=== PATIENT | female | born 1990 | race Two or more races ===

== ENCOUNTER 2024-03-27 06:43 | Inpatient (IN) | payer MEDICAID, OTHER ==
[~2024-03-27] VITALS: Ht 170.2 cm; Wt 92.0 kg
[2024-03-27] MEDS: MORPHINE SULFATE 4 MG/ML SYR/VIAL IV ONE (07:09)
[2024-03-27] MEDS: ONDANSETRON HCL 4 MG/2 ML VIAL IV ONE (07:14)
[2024-03-27] MEDS: SODIUM CHLORIDE 0.9% 1,000 ML IVB ONE (07:18)
[2024-03-27] MEDS: KETOROLAC TROMETH 30 MG/ML 1ML VIAL IV ONE (08:00)
[2024-03-27 08:05] LABS: Basophils # (auto) 0.1 10 ^3/uL (0-0.2); Eosinophils # (auto) 0.7 10 ^3/uL (0-0.8); Eosinophils % (auto) 4.9 % (0.0-7.0); Hematocrit 44.6 % (36.0-46.0); Hemoglobin 15.7 g/dL (12.2-16.2); Lymphocytes % (auto) 27.2 % (10.0-50.0); Mean Corpuscular Hemoglobin 29.9 pg (28.0-32.0); Mean Corpuscular Hgb Conc. 35.1 g/dL (32.0-36.0); Monocytes # (auto) 0.7 10 ^3/uL (0-1.3); Neutrophils # (auto) 9.1 10 ^3/uL (1.6-8.6); Neutrophils % (auto) 61.9 % (37.0-80.0); Nucleated Red Blood Cells % 0.1 %; Platelet Count (auto) 397 10^3/uL (140-450); Red Blood Cells 5.24 10^6/uL (4.0-5.20); Red Cell Distribution Width 13.3 % (11.8-14.3); White Blood Cell 14.7 10^3/uL (4.4-10.8)
[2024-03-27 08:13] LABS: Anion Gap 10 (5-15); Carbon Dioxide 19 mmol/L (20-31); Chloride 110 mmol/L (98-107); Sodium 139 mmol/L (136-145)
[2024-03-27 08:14] LABS: Calcium 9.7 mg/dL (8.7-10.4)
[2024-03-27 08:19] LABS: BUN/Creatinine Ratio 14.6 (10.0-20.0); Blood Urea Nitrogen 12 mg/dL (9-23); Glucose 121 mg/dL (74-106)
[2024-03-27 09:13] LABS: Urine Bacteria FEW /hpf (None Seen); Urine Blood 3+ /uL (Negative); Urine Clarity Clear (Clear); Urine Color Light-Yellow (Yellow); Urine Protein, UAD Negative (Negative); Urine Specific Gravity 1.012 (1.001-1.035); Urine Urobilinogen Normal (Negative); Urine WBC 3 /hpf (0 - 5); Urine pH 6.5 (5.0-9.0)
[2024-03-27 09:18] LABS: Lipase 35 U/L (12-53)
[2024-03-27] MEDS ORDERED: ACETAMINOPHEN 325 MG TAB PO PRN (12:30)
[2024-03-27] MEDS ORDERED: ESCI1TAB37 PO (12:36)
[2024-03-27] MEDS ORDERED: CLON0.1T PO (12:36)
[2024-03-27] MEDS ORDERED: HYDR50TA69 PO (12:36)
[2024-03-27] MEDS ORDERED: cloNIDine HCL 0.1 MG TAB PO PRN (12:45)
[2024-03-27] MEDS: SODIUM CHLORIDE 0.9% 1,000 ML IV SCH (13:03)
[2024-03-27] MEDS: NICOTINE 7MG/24HR TOPICAL PATCH TD ONE (13:04)
[2024-03-27] MEDS: ONDANSETRON HCL 4 MG/2 ML VIAL IV PRN (13:57)
[2024-03-27] MEDS: PANTOPRAZOLE 40 MG/10 ML VIAL INJ IV ONE (13:57)
[2024-03-27] MEDS: metroNIDAZOLE 500MG/100ML 100 ML IV SCH (13:57)
[2024-03-27] MEDS: MORPHINE SULFATE INJ 2 MG/ml SYRG IV ONE (13:58)
[2024-03-27] MEDS: cefTRIAXone 1GM/50ML D5W 50 ML IV ONE (14:00)
[2024-03-27 16:53] LABS: Partial Thromboplastin Time 29.3 SEC (24.5-34.5); Prothrombin Time 10.6 sec (9.3-11.8)
[2024-03-27] MEDS: LORazepam 0.5 MG TAB PO ONE (17:06)
[2024-03-27 17:49] VITALS: BP 102/53; PULSE 88; RESP 19; TEMP 98.1; O2SAT 96
[2024-03-27] MEDS: MORPHINE SULFATE INJ 2 MG/ml SYRG IV PRN (18:19)
[2024-03-27 18:40] VITALS: BP 112/66
[2024-03-27] MEDS ORDERED: BACL20TA PO (20:12)
[2024-03-27] MEDS ORDERED: ESCI20TA PO (20:12)
[2024-03-27 21:00] VITALS: BP 111/65; PULSE 108; RESP 20; TEMP 98.2; O2SAT 98
[2024-03-27] MEDS: hydrOXYzine 25 MG TAB or CAP PO PRN (22:41)
[2024-03-28] VITALS (8 sets, daily range): BP systolic 115–137; BP diastolic 54–96; PULSE 76–94; RESP 18–20; TEMP 98–98.3; O2SAT 96–100
[2024-03-28 08:53] LABS: Hepatitis B Surface Antibody Positive (Negative)
[2024-03-28] MEDS ORDERED: HYDR50TA69 PO (08:59)
[2024-03-28] MEDS ORDERED: CLON0.1T PO (08:59)
[2024-03-28 09:04] LABS: Hepatitis B Surface Antigen Negative (Negative)
[2024-03-28] MEDS ORDERED: cloNIDine HCL 0.1 MG TAB PO PRN (09:15)
[2024-03-28] MEDS: PANTOPRAZOLE 40 MG/10 ML VIAL INJ IV SCH (09:17)
[2024-03-28] MEDS: cefTRIAXone 1GM/50ML D5W 50 ML IV SCH (09:21)
[2024-03-28] MEDS: NICOTINE 7MG/24HR TOPICAL PATCH TD SCH (09:21)
[2024-03-28 09:26] LABS: Hepatitis B Core IgM Negative
[2024-03-28 09:27] LABS: Hepatitis C Antibody Negative (Negative)
[2024-03-28] MEDS ORDERED: CITALOPRAM HYDROBR 20 MG TAB PO SCH (10:00)
[2024-03-28] MEDS: CITALOPRAM HYDROBR 20 MG TAB PO SCH (10:00)
[2024-03-28] MEDS: HYDROcodone-ACET 5/325MG TAB PO PRN (11:10)
[2024-03-28] MEDS ORDERED: ESCITALOPRAM 20 MG PO SCH (11:15)
[2024-03-28] MEDS: ENOXAPARIN SOD 40 MG/0.4 ML SYRINGE SC ONE (12:00)
[2024-03-28] MEDS: ESCITALOPRAM 20 MG PO SCH (12:03)
[2024-03-28 16:38] LABS: Basophils # (auto) 0.1 10 ^3/uL (0-0.2); Basophils % (auto) 0.7 % (0.0-2.0); Eosinophils % (auto) 8.4 % (0.0-7.0); Hemoglobin 14.5 g/dL (12.2-16.2); Lymphocytes % (auto) 41.4 % (10.0-50.0); Mean Corpuscular Hemoglobin 29.6 pg (28.0-32.0); Mean Corpuscular Hgb Conc. 34.6 g/dL (32.0-36.0); Mean Corpuscular Volume 85.4 fL (80.0-100.0); Monocytes # (auto) 0.5 10 ^3/uL (0-1.3); Monocytes % (auto) 4.1 % (0.0-12.0); Neutrophils # (auto) 5.5 10 ^3/uL (1.6-8.6); Neutrophils % (auto) 45.4 % (37.0-80.0); Nucleated Red Blood Cells % 0.1 %; Platelet Count (auto) 401 10^3/uL (140-450); Red Blood Cells 4.91 10^6/uL (4.0-5.20); Red Cell Distribution Width 13.5 % (11.8-14.3); White Blood Cell 12.1 10^3/uL (4.4-10.8)
[2024-03-28 16:56] LABS: Alanine Aminotransferase 37 U/L (7-40); Albumin 4.2 g/dL (3.2-4.8); Alkaline Phosphatase 81 U/L (46-116); Anion Gap 6 (5-15); Aspartate Aminotransferase 17 U/L (13-40); Calcium 9.4 mg/dL (8.7-10.4); Carbon Dioxide 22 mmol/L (20-31); Chloride 114 mmol/L (98-107); Glucose 81 mg/dL (74-106); Potassium 3.6 mmol/L (3.5-5.1); Sodium 142 mmol/L (136-145); Triglycerides 418 mg/dL (< 150)
[2024-03-28 16:57] LABS: Bilirubin, Total 0.3 mg/dL (0.2-1.0); Cholesterol 193 mg/dL (< 200); HDL Cholesterol 25 mg/dL (40-59); Total Protein 6.2 g/dL (5.7-8.2)
[2024-03-28 17:06] LABS: BUN/Creatinine Ratio 6.3 (10.0-20.0); Blood Urea Nitrogen < 5 mg/dL (9-23)
[2024-03-28 17:26] LABS: Triglycerides 420 mg/dL (< 150)
[2024-03-28 17:28] LABS: Cholesterol 194 mg/dL (< 200); HDL Cholesterol 25 mg/dL (40-59)
[2024-03-28] MEDS: LORazepam 2MG/ML-1ML VIAL IV PRN (19:13)
[2024-03-29] VITALS (8 sets, daily range): BP systolic 118–138; BP diastolic 57–81; PULSE 85–96; RESP 15–20; TEMP 97.9–98.3; O2SAT 95–100
[2024-03-29] MEDS: ENOXAPARIN SOD 40 MG/0.4 ML SYRINGE SC SCH (09:36)
[2024-03-29 19:26] LABS: Basophils # (auto) 0.1 10 ^3/uL (0-0.2); Basophils % (auto) 0.7 % (0.0-2.0); Eosinophils # (auto) 0.5 10 ^3/uL (0-0.8); Hemoglobin 13.9 g/dL (12.2-16.2); Lymphocytes # (auto) 3.4 10 ^3/uL (0.4-5.4); Lymphocytes % (auto) 34.2 % (10.0-50.0); Mean Corpuscular Hemoglobin 29.6 pg (28.0-32.0); Mean Corpuscular Hgb Conc. 34.7 g/dL (32.0-36.0); Mean Corpuscular Volume 85.2 fL (80.0-100.0); Monocytes # (auto) 0.5 10 ^3/uL (0-1.3); Neutrophils # (auto) 5.5 10 ^3/uL (1.6-8.6); Neutrophils % (auto) 55.1 % (37.0-80.0); Nucleated Red Blood Cells % 0.1 %; Platelet Count (auto) 398 10^3/uL (140-450); Red Cell Distribution Width 13.3 % (11.8-14.3); White Blood Cell 9.9 10^3/uL (4.4-10.8)
[2024-03-29 19:40] LABS: Chloride 113 mmol/L (98-107); Potassium 3.4 mmol/L (3.5-5.1); Sodium 143 mmol/L (136-145)
[2024-03-29 19:41] LABS: Anion Gap 8 (5-15); Calcium 9.1 mg/dL (8.7-10.4); Carbon Dioxide 22 mmol/L (20-31)
[2024-03-29 19:46] LABS: Glucose 83 mg/dL (74-106)
[2024-03-29 19:53] LABS: Blood Urea Nitrogen < 5 mg/dL (9-23)
[2024-03-30] VITALS (8 sets, daily range): BP systolic 127–159; BP diastolic 58–90; PULSE 72–98; RESP 16–20; TEMP 97.4–99.2; O2SAT 94–100
[2024-03-30] MEDS: ceFAZolin 2 GM/D5W100ml 100 ML IV ONE (06:35)
[2024-03-30] MEDS: LIDOCAINE 2% JELLY 11ml (GLYDO) ONE (06:49)
[2024-03-30] MEDS ORDERED: MIDAZOLAM HCL 2MG/2ML 2ml VIAL (1mg/ml) ONE (07:01)
[2024-03-30] MEDS ORDERED: KETAMINE 50mg/ML 1ml syringe ONE (07:01)
[2024-03-30] MEDS ORDERED: fentaNYL CITRATE 100 MCG/2 ML VL ONE (07:01)
[2024-03-30] MEDS ORDERED: MEPERIDINE HCL (50 MG/ML) 1 ML VIAL ONE (07:01)
[2024-03-30] MEDS ORDERED: PROPOFOL 10 MG/ML 20 ML IV ONE (07:02)
[2024-03-30] MEDS ORDERED: SODIUM CHLORIDE LOCK 10 ML ONE (07:02)
[2024-03-30] MEDS ORDERED: LIDOCAINE 1% INJ PF 5ML AMP ONE (07:02)
[2024-03-30] MEDS ORDERED: ROCURONIUM 10MG/ML 10ML VIAL IV ONE (07:02)
[2024-03-30] MEDS ORDERED: LIDOCAINE HCL 2% TOP JELLY 5ML TOP ONE (07:02)
[2024-03-30] MEDS ORDERED: ONDANSETRON HCL 4 MG/2 ML VIAL ONE (07:02)
[2024-03-30] MEDS ORDERED: GLYCOPYRROLATE 0.2 MG/ML 1ML VIAL ONE (07:02)
[2024-03-30] MEDS ORDERED: NEOSTIGMINE 1 MG/ML INJ (10mg/10ML VIAL) ONE (07:02)
[2024-03-30 07:11] LABS: Chloride 110 mmol/L (98-107); Potassium 3.5 mmol/L (3.5-5.1); Sodium 141 mmol/L (136-145)
[2024-03-30 07:12] LABS: Anion Gap 7 (5-15); Calcium 9.1 mg/dL (8.7-10.4); Carbon Dioxide 24 mmol/L (20-31)
[2024-03-30 07:17] LABS: BUN/Creatinine Ratio 7.9 (10.0-20.0); Blood Urea Nitrogen 6 mg/dL (9-23); Glucose 85 mg/dL (74-106); INR 1.08 (0.9-1.15); Partial Thromboplastin Time 31.1 SEC (24.5-34.5); Prothrombin Time 11.4 sec (9.3-11.8)
[2024-03-30] MEDS: KETOROLAC TROMETH 30 MG/ML 1ML VIAL IV ONE (07:30)
[2024-03-30] MEDS: METOCLOPRAMIDE HCL 5MG/ml INJ 2ml VIAL IV ONE (07:30)
[2024-03-30] MEDS ORDERED: HYDROmorphone HCL 2 MG/ML VL/or syr IV PRN ×3 (07:30→09:45)
[2024-03-30 07:58] LABS: Basophils # (auto) 0.1 10 ^3/uL (0-0.2); Basophils % (auto) 1.3 % (0.0-2.0); Eosinophils # (auto) 0.7 10 ^3/uL (0-0.8); Eosinophils % (auto) 6.8 % (0.0-7.0); Hematocrit 40.2 % (36.0-46.0); Hemoglobin 14.2 g/dL (12.2-16.2); Lymphocytes # (auto) 3.6 10 ^3/uL (0.4-5.4); Lymphocytes % (auto) 33.2 % (10.0-50.0); Mean Corpuscular Hemoglobin 29.8 pg (28.0-32.0); Mean Corpuscular Hgb Conc. 35.3 g/dL (32.0-36.0); Mean Corpuscular Volume 84.4 fL (80.0-100.0); Monocytes # (auto) 0.4 10 ^3/uL (0-1.3); Monocytes % (auto) 4.1 % (0.0-12.0); Neutrophils # (auto) 5.9 10 ^3/uL (1.6-8.6); Neutrophils % (auto) 54.6 % (37.0-80.0); Nucleated Red Blood Cells % 0.2 %; Platelet Count (auto) 386 10^3/uL (140-450); Red Blood Cells 4.76 10^6/uL (4.0-5.20); Red Cell Distribution Width 13.3 % (11.8-14.3); White Blood Cell 10.8 10^3/uL (4.4-10.8)
[2024-03-30] MEDS ORDERED: ONDANSETRON HCL 4 MG/2 ML VIAL IV PRN (09:45)
[2024-03-30] MEDS: BUPIVACAINE 0.25% INJ 50ML VIAL ONE (09:48)
[2024-03-30] MEDS: LIDOCAINE W/ EPINEPHRINE 1% 20ML VIAL ONE (09:49)
[2024-03-30] MEDS: PANTOPRAZOLE 40 MG/10 ML VIAL INJ IV SCH (10:00)
[2024-03-30] MEDS: MORPHINE SULFATE INJ 2 MG/ml SYRG IV PRN (10:09)
[2024-03-30] MEDS: MEPERIDINE HCL (25 MG/ML) 1ML VIAL IV ONE (10:28)
[2024-03-30] MEDS: MEPERIDINE HCL (25 MG/ML) 1ML VIAL ONE (10:29)
[2024-03-30] MEDS: ACETAMINOPHEN IV 100 ML IV ONE (10:29)
[2024-03-30] MEDS: ACETAMINOPHEN IV 1000 MG/100ML (10MG/ML) IV ONE (10:37)
[2024-03-30] MEDS ORDERED: CEPH250C PO (13:59)
[2024-03-30] MEDS ORDERED: NAPR-746 PO (13:59)
[2024-03-30] MEDS ORDERED: DOCU-265 PO (13:59)
[2024-03-30] MEDS ORDERED: MORPHINE SULFATE INJ 2 MG/ml SYRG IV PRN (14:15)
[2024-03-30] MEDS: ceFAZolin 2 GM/D5W50ml 50 ML IV SCH (17:15)
[2024-03-30] MEDS: D5W/SOD CHL 0.45%/KCL 20MEQ 1,000 ML IV SCH (18:05)
[2024-03-31 01:00] VITALS: BP 129/77; PULSE 100; RESP 18; TEMP 98.7; O2SAT 92
[2024-03-31 05:00] VITALS: BP 127/72; PULSE 84; RESP 18; TEMP 98.6; O2SAT 96
[2024-03-31 08:00] VITALS: PULSE 95; RESP 19; O2SAT 94
[2024-03-31 08:30] VITALS: BP 106/59; PULSE 95; RESP 19; TEMP 97.8; O2SAT 94
[2024-03-31 11:58] LABS: Basophils # (auto) 0.1 10 ^3/uL (0-0.2); Basophils % (auto) 0.6 % (0.0-2.0); Eosinophils # (auto) 0 10 ^3/uL (0-0.8); Hematocrit 40.7 % (36.0-46.0); Hemoglobin 14.4 g/dL (12.2-16.2); Lymphocytes # (auto) 3.3 10 ^3/uL (0.4-5.4); Lymphocytes % (auto) 19.7 % (10.0-50.0); Mean Corpuscular Hemoglobin 30.1 pg (28.0-32.0); Mean Corpuscular Hgb Conc. 35.4 g/dL (32.0-36.0); Mean Corpuscular Volume 84.9 fL (80.0-100.0); Monocytes # (auto) 1.1 10 ^3/uL (0-1.3); Monocytes % (auto) 6.5 % (0.0-12.0); Neutrophils # (auto) 12.2 10 ^3/uL (1.6-8.6); Neutrophils % (auto) 73.2 % (37.0-80.0); Platelet Count (auto) 450 10^3/uL (140-450); Red Blood Cells 4.79 10^6/uL (4.0-5.20); Red Cell Distribution Width 13.5 % (11.8-14.3); White Blood Cell 16.7 10^3/uL (4.4-10.8)
[2024-03-31 12:06] LABS: Chloride 113 mmol/L (98-107); Potassium 3.9 mmol/L (3.5-5.1); Sodium 142 mmol/L (136-145)
[2024-03-31 12:07] LABS: Anion Gap 9 (5-15); Carbon Dioxide 20 mmol/L (20-31)
[2024-03-31 12:08] LABS: Calcium 9.9 mg/dL (8.7-10.4)
[2024-03-31 12:12] LABS: Glucose 134 mg/dL (74-106)
[2024-03-31 12:23] VITALS: BP 127/82; PULSE 95; RESP 19; TEMP 98.1; O2SAT 96
[2024-03-31 13:13] LABS: BUN/Creatinine Ratio 10.6 (10.0-20.0); Blood Urea Nitrogen 9 mg/dL (9-23)
[2024-03-31 13:57] VITALS: BP 106/59; PULSE 92; RESP 19; TEMP 97.8; O2SAT 94
== END 2024-03-31 15:00 | disposition home or self-care (01) | DRG 263 ==
LOC: ER 06:43 → OVERFLOW 12:32 → EEVIPCON 12:32 → WEST WING 17:34
PROVIDERS: ADMIT Internal Medicine; ATTEND Internal Medicine
PROC: 0FT44ZZ Resection of Gallbladder, Percutaneous Endoscopic Approach (ICD-10-PCS; principal; 2024-03-30 08:46)
DX: K80.00 Calculus of gallbladder with acute cholecystitis without obstruction (principal); I95.2 Hypotension due to drugs; F17.210 Nicotine dependence, cigarettes, uncomplicated; F41.1 Generalized anxiety disorder; I16.0 Hypertensive urgency; F43.10 Post-traumatic stress disorder, unspecified; Z82.5 Family history of asthma and other chronic lower respiratory diseases; Z80.8 Family history of malignant neoplasm of other organs or systems; Z79.899 Other long term (current) drug therapy; T46.5X5A Adverse effect of other antihypertensive drugs, initial encounter; Y92.89 Other specified places as the place of occurrence of the external cause
CPT/HCPCS: 36415; 74176; 76705; 80048; 80053; 80061; 81001; 82247; 82306; 82607; 83036; 83605; 83690; 84443; 84702; 85025; 85610; 85730; 86705; 86706; 86803; 86850; 86900; 86901; 87040; 87086; 87340; G0378; J0131; J1885; J2250; J2405; J2470; J2704; J3490